=== PATIENT | female | born 1980 | race American Indian/Alaskan Native ===

== ENCOUNTER 2016-09-05 07:17 | Emergency (ER) | payer MEDICAID ==
--- NOTE | 2016-09-05 16:15 | Vascular Lab Report ---
Right Lower Extremity Venous Duplex Study: Reason for Exam: Pain of the right lower extremity. Comments on the Right: Recanalized deep venous thrombus noted in the femoral vein. Superficial thrombus noted in the greater saphenous vein.. The remaining veins visualized are freely compressible without evidence of internal echogenicity. Spontaneous and phasic flow is absent proximally. Comments on the Left: A limited duplex study was done of the proximal veins of the left lower extremity. All veins visualized are freely compressible without evidence of internal echogenicity. Flow is spontaneous and phasic throughout. No evidence of acute or chronic thrombus is seen in any of the vessels visualized. Impression: No evidence of acute deep venous thrombosis. Recanalized chronic deep venous thrombosis in the femoral vein. Superficial thrombophlebitis in the greater saphenous vein.
--- NOTE | 2016-09-05 16:56 | Emergency Department Report ---
ED Extremity Problem HPI - General Chief complaint: Extremity Injury, Lower Stated complaint: POSS DVT Time Seen by Provider: 09/05/16 15:59 Source: patient Mode of arrival: Ambulatory Limitations: No Limitations - History of Present Illness Initial comments: 36-year-old female presents to the emergency department complaining of aching pain in her right inner thigh for the past one week. Patient states that it feels like she has a blood clot in her leg. Patient reports a history of blood clots and pulmonary embolism. She was taken off of anticoagulation by her delivery engineer 3 years ago. She has not seen his delivery engineer since then. Patient denies chest pain or difficulty breathing. She also denies swelling or redness in her right leg. There are no other complaints. MD Complaint: extremity pain -: Gradual, week(s) (1) Location: right, lower extremity History of Same: Yes Radiation: none Severity scale (0 -10): 2 Quality: aching Consistency: constant Improves with: nothing Worsens with: nothing Associated Symptoms: denies other symptoms - Related Data Home Medications Medication Instructions Recorded Confirmed Last Taken Losartan [Cozaar] 100 mg PO QDAY 02/12/13 01/28/16 03/07/14 09:00 Atenolol/Chlorthalidone 1 tab PO DAILY 08/24/13 01/28/16 03/15/14 06:00 [Atenolol-Chlorthalidone 100-25 mg] Budesoni/Formotero 160-4.5(Nf) 2 puff INHALATION ONCE PRN 08/31/13 01/28/1606/30 09:00 [Symbicort 160-4.5] Ferrous Sulfate(Nf) [Slow Release 325 mg PO BID 03/12/14 01/28/16 03/13/14 09:00 Iron(Nf)] Ibuprofen [Advil] 600 mg PO Q6H PRN 03/12/14 01/28/16 03/12/14 09:00 Temazepam 30 mg PO QHS PRN 03/12/14 01/28/16 03/12/14 21:00 amLODIPine [Norvasc] 10 mg PO DAILY 03/12/14 01/28/16 03/15/14 06:00 Previous Rx's Medication Instructions Recorded Last Taken Type traMADol [Ultram 50 MG tab] 50 mg PO Q6HR PRN #15 tablet 10/14/15 Unknown Rx oxyCODONE /ACETAMINOPHEN [Percocet 1 tab PO Q6HR PRN #20 tablet 09/05/16 Unknown Rx 5/325] Allergies Allergy/AdvReac Type Severity Reaction Status Date / Time No Known Allergies Allergy Verified 09/05/16 07:27 ED Review of Systems ROS: Stated complaint: POSS DVT Other details as noted in HPI Comment: All other systems reviewed and negative Musculoskeletal: as per HPI, myalgia ED Past Medical Hx - Past Medical History Previous Medical History?: Yes Hx Hypertension: Yes (FOR 9 YRS, DR. TAYLOR- PCP) Hx Congestive Heart Failure: No Hx Deep Vein Thrombosis: Yes (MULTIPLE IN RIGHT LEG, LAST ONE 2012) Hx Pulmonary Embolism: Yes Hx Psychiatric Treatment: Yes (suicide attempt / depression) Hx Asthma: No Hx COPD: No Additional medical history: sleep apnea. anemia. morbid obesity - Surgical History Past Surgical History?: Yes Hx Breast Surgery: Yes (breast reduction) Additional Surgical History: Uterian fibroid surgery. lap band surgery. myomectomy - Family History Family history: no significant - Social History Smoking Status: Never Smoker Substance Use Type: Prescribed - Medications Home Medications: Home Medications Medication Instructions Recorded Confirmed Last Taken Type Losartan [Cozaar] 100 mg PO QDAY 02/12/13 01/28/16 03/07/14 09:00 History Atenolol/Chlorthalidone 1 tab PO DAILY 08/24/13 01/28/16 03/15/14 06:00 History [Atenolol-Chlorthalidone 100-25 mg] Budesoni/Formotero 160-4.5(Nf) 2 puff INHALATION ONCE PRN 08/31/13 01/28/1606/30 09:00 History [Symbicort 160-4.5] Ferrous Sulfate(Nf) [Slow Release 325 mg PO BID 03/12/14 01/28/16 03/13/14 09: 00 History Iron(Nf)] Ibuprofen [Advil] 600 mg PO Q6H PRN 03/12/14 01/28/16 03/12/14 09:00 History Temazepam 30 mg PO QHS PRN 03/12/14 01/28/16 03/12/14 21:00 History amLODIPine [Norvasc] 10 mg PO DAILY 03/12/14 01/28/16 03/15/14 06:00 History traMADol [Ultram 50 MG tab] 50 mg PO Q6HR PRN #15 tablet 10/14/15 01/28/16 Unknown Rx oxyCODONE /ACETAMINOPHEN [Percocet 1 tab PO Q6HR PRN #20 tablet 09/05/16 Unknown Rx 5/325] ED Physical Exam - General Limitations: No Limitations General appearance: alert, in no apparent distress, obese - Head Head exam: Present: atraumatic, normocephalic - Eye Eye exam: Present: normal appearance, PERRL, EOMI - ENT ENT exam: Present: normal exam, normal orophraynx, mucous membranes moist - Neck Neck exam: Present: normal inspection, full ROM. Absent: tenderness - Respiratory Respiratory exam: Present: normal lung sounds bilaterally. Absent: respiratory distress - Cardiovascular Cardiovascular Exam: Present: regular rate, normal rhythm, normal heart sounds - GI/Abdominal GI/Abdominal exam: Present: soft, normal bowel sounds. Absent: distended, tenderness - Extremities Exam Extremities exam: Present: normal inspection, full ROM. Absent: tenderness - Back Exam Back exam: Present: normal inspection, full ROM. Absent: tenderness - Neurological Exam Neurological exam: Present: alert, oriented X3. Absent: motor sensory deficit - Skin Skin exam: Present: warm, dry, intact ED Course Vital Signs 09/05/16 07:22 Temperature 98.5 F Pulse Rate 94 H Respiratory 19 Rate Blood Pressure 158/86 O2 Sat by Pulse 100 Oximetry ED Medical Decision Making - Radiology Data Radiology results: report reviewed Right lower extremity Doppler ultrasound reveals no evidence of acute DVT. There is an acute SVT in the proximal thigh. - Medical Decision Making Imaging results reviewed and discussed with the patient. I have spoken with Dr. Parrish. Patient will be provided with a discount card for Eliquis and discharged home to follow up in his office. This was discussed with the patient , who agrees. - Differential Diagnosis leg pain, DVT Critical care attestation.: If time is entered above; I have spent that time in minutes in the direct care of this critically ill patient, excluding procedure time. ED Disposition Clinical Impression: Acute superficial venous thrombosis of right lower extremity Disposition: DISCHARGED TO HOME OR SELFCARE Is pt being admited?: No Condition: Stable Instructions: Venous Thromboembolism (ED) Prescriptions: oxyCODONE /ACETAMINOPHEN [Percocet 5/325] 1 tab PO Q6HR PRN #20 tablet PRN Reason: Pain Referrals: KRISS PARRISH DO [Staff Physician] - 3-5 Days Time of Disposition: 17:51
[2016-09-05 18:01] VITALS: BP 139/83
== END 2016-09-05 18:02 | disposition home or self-care (01) ==
LOC: ED 07:17
DX: I82.401 Acute embolism and thrombosis of unspecified deep veins of right lower extremity (principal); I10 Essential (primary) hypertension; Z86.711 Personal history of pulmonary embolism; F32.9 Major depressive disorder, single episode, unspecified; E66.01 Morbid (severe) obesity due to excess calories; Z90.89 Acquired absence of other organs

== ENCOUNTER 2016-12-10 10:01 | Outpatient (CLI) | payer MEDICAID ==
--- NOTE | 2016-12-10 12:16 | Ultrasound Report ---
Pelvic ultrasound: Dysfunctional uterine bleeding. Endovaginal and transabdominal imaging demonstrates an enlarged uterus measuring 9.5 x 10.5 x 14.3 cm. The uterus is heterogeneous with approximately 4 masses one of which appears to be central in position. The central mass measures 4.1 cm. The others range in size from 2.3-3.9 cm. The endometrium appears to be displaced by the central mass and may BE submucous in position. There is no obvious endometrial mass although the endometrium is not well imaged. There is a complex nabothian cyst measuring 18 mm. The left ovary measures 3.3 cm containing a 1.7 cm cyst. The right ovary measures 3.6 cm and contains a 14 mm cyst. Adjacent to the uterus there is a 6 cm mass having echo density consistent with the uterus and contiguous with the right wall of the uterus. In April 2016 the right adnexal/periuterine mass is not described. Impression: 1. Multiple uterine fibroids. Questionable submucous fibroid. 2. Limited evaluation of the endometrium. No obvious endometrial mass. 3. The right adnexal mass may be an exophytic fibroid. It appears to be unrelated to the ovary. Recommendation: Consider MR scan to better evaluate the right adnexal mass as well as the endometrium. Another possibility for bleeding evaluation would be a hysterosonogram.
== END 2016-12-10 10:02 | disposition home or self-care (01) ==
LOC: US 10:01
PROVIDERS: ATTEND Obstetrics & Gynecology
DX: D25.9 Leiomyoma of uterus, unspecified (principal); N83.201 Unspecified ovarian cyst, right side; N83.202 Unspecified ovarian cyst, left side; N88.8 Other specified noninflammatory disorders of cervix uteri; I10 Essential (primary) hypertension; D64.9 Anemia, unspecified; E78.00 Pure hypercholesterolemia, unspecified
CPT/HCPCS: 76830; 76856

== ENCOUNTER 2017-03-02 12:41 | Emergency (ER) | payer SELFPAY ==
[2017-03-02 20:00] VITALS: BP 161/117
[2017-03-03 01:16] LABS: Mean Corpuscular HGB Conc 30 % (30-34); Platelet Count 409 K/mm3 (140-440); Red Blood Count 4.98 M/mm3 (3.65-5.03); White Blood Count 8.3 K/mm3 (4.5-11.0)
[2017-03-03 01:21] LABS: Anion Gap 21 mmol/L; BUN/Creatinine Ratio 13.33; Blood Urea Nitrogen 8 mg/dL (7-17); Calcium 9.5 mg/dL (8.4-10.2); Carbon Dioxide 22 mmol/L (22-30); Chloride 102.5 mmol/L (98-107); Glucose 75 mg/dL (65-100); Potassium 3.7 mmol/L (3.6-5.0); Sodium 142 mmol/L (137-145)
[2017-03-03 01:24] LABS: Hematocrit 32.6 % (30.3-42.9); Hemoglobin 9.7 gm/dl (10.1-14.3); Mean Corpuscular Hemoglobin 19 pg (28-32); Mean Corpuscular Volume 66 fl (79-97)
[2017-03-03 01:25] LABS: INR 0.91 (0.87-1.13)
--- NOTE | 2017-03-03 09:50 | XRay Report ---
ROUTINE CHEST, TWO VIEWS: HISTORY: Shortness of breath. The trachea, heart, mediastinal contour, lung sahu and bony thorax are unremarkable. IMPRESSION: Unremarkable chest x-ray.
--- NOTE | 2017-03-03 10:15 | Vascular Lab Report ---
Right Lower Extremity Venous Duplex Study: Reason for Exam: Pain of the right lower extremity. Comments on the Right: Chronic thrombosis noted in the right femoral and common femoral veins. The remaining veins visualized are freely compressible without evidence of internal echogenicity. Spontaneous and phasic flow is present proximally. Comments on the Left: A limited duplex study was done of the proximal veins of the left lower extremity. All veins visualized are freely compressible without evidence of internal echogenicity. Flow is spontaneous and phasic throughout. No evidence of acute or chronic thrombus is seen in any of the vessels visualized. Impression: Chronic deep venous thrombosis in the right lower extremity.
== END 2017-03-03 01:00 | disposition left against medical advice (07) ==
LOC: ED 12:41
DX: M79.671 Pain in right foot (principal); Z53.21 Procedure and treatment not carried out due to patient leaving prior to being seen by health care provider
CPT/HCPCS: 36415; 71020; 80048; 84702; 85027; 85610; 85730

== ENCOUNTER 2017-10-14 10:28 | Emergency (ER) | payer OTHER ==
[2017-10-14] MEDS ORDERED: NORVASC PO ONE (11:19)
--- NOTE | 2017-10-14 11:22 | Emergency Department Report ---
Chief Complaint: Extremity Injury, Lower Stated Complaint: LEFT LEG PAIN/HX BLOOD CLOTS - HPI History of Present Illness: 37-year-old female past medical history DVTs and PEs, morbid obesity, hypertension presents with complaint of approximately 3-5 days of worsening pain and swelling in lower extremities worse on left than right. Denies any current chest pain shortness of breath or palpitations. Patient states she was last treated for PE and DVT in 2014. Is not currently taking any medicines and has not seen a primary care doctor for a long time. Was previously on losartan and amlodipine for blood pressure control. Awake alert and oriented 3 not in acute distress. - ROS Review of Systems: History of PE and DVT - Exam Vital Signs: Vital Signs 10/14/17 11:08 Temperature 98.2 F Pulse Rate 89 Respiratory 18 Rate Blood Pressure 188/124 O2 Sat by Pulse 100 Oximetry Physical Exam: Bilateral lower extremities large significant amount of adipose tissue. Difficult to ascertain exactly where pain is. MSE screening note: Focused history and physical exam performed. Due to findings the following was ordered: Screening Assessment/Plan/Differential Dx: Lower extremity pain and swelling 1- This initial assessment/diagnostic orders/clinical plan/ treatment(s) is/are subject to change based on pt's health status, clinical progression and re- assessment by fellow clinical providers in the ED. Further treatment and workup at subsequent clinical provers discretion. Patient/guardians urged not to elope from ED as their condition may be serious if not clinically assessed and managed. 2-labs and lower extremity duplex 3-1 dose of amlodipine this patient's blood pressure is elevated. Patient previously on amlodipine and will start. States she has not taken it in some time ED Disposition for MSE Condition: Stable
[2017-10-14 11:34] LABS: Basophils % (Auto) 0.5 % (0.0-1.8); Eosinophils # (Auto) 0.3 K/mm3 (0.0-0.4); Eosinophils % (Auto) 4.1 % (0.0-4.3); Lymphocytes # (Auto) 2.3 K/mm3 (1.2-5.4); Lymphocytes % (Auto) 31.3 % (13.4-35.0); Mean Corpuscular HGB Conc 29 % (30-34); Monocytes # (Auto) 0.4 K/mm3 (0.0-0.8); Monocytes % (Auto) 6.1 % (0.0-7.3); Platelet Count 417 K/mm3 (140-440); Red Blood Count 4.36 M/mm3 (3.65-5.03)
[2017-10-14 11:38] LABS: Hematocrit 29.3 % (30.3-42.9); Hemoglobin 8.6 gm/dl (10.1-14.3)
[2017-10-14 11:39] LABS: Mean Corpuscular Hemoglobin 20 pg (28-32); Mean Corpuscular Volume 67 fl (79-97); Red Cell Distribution Width 20.9 % (13.2-15.2)
[2017-10-14 11:44] LABS: INR 0.87 (0.87-1.13)
[2017-10-14 11:45] LABS: Partial Thromboplastin Time 27.6 Sec. (24.2-36.6)
[2017-10-14 11:46] LABS: BUN/Creatinine Ratio 21; Blood Urea Nitrogen 15 mg/dL (7-17); Calcium 8.8 mg/dL (8.4-10.2); Hemolysis Index 0
[2017-10-14] MEDS ORDERED: LOVENOX SUB-Q ONE ×2 (13:00)
[2017-10-14] MEDS ORDERED: NACL 0.9% 500 ML 500 ML IV ONE (13:07)
[2017-10-14] MEDS ORDERED: SUBLIMAZE IV ONE (13:07)
[2017-10-14] MEDS ORDERED: LOVENOX SUB-Q STA (13:08)
--- NOTE | 2017-10-14 13:10 | Emergency Department Report ---
ED General Adult HPI - General Chief complaint: Extremity Injury, Lower Stated complaint: LEFT LEG PAIN/HX BLOOD CLOTS Time Seen by Provider: 10/14/17 12:56 Source: patient, RN notes reviewed, old records reviewed Mode of arrival: Ambulatory Limitations: No Limitations - History of Present Illness Initial comments: This is a 37-year-old female who is previously unknown to this provider. Past medical history includes DVT, pulmonary embolus, obesity, sleep apnea, lap band surgery, noncompliant with CPAP. Patient reports that she presents to the ER with a complaint of leg pain. The leg pain is in the left anterior tibial region, distal to the knee, and radiates to the dorsal aspect of left foot. It is achy. It is intermittent. It increases with palpation and range of motion. And it decreases with rest. The patient also complains of left medial thigh pain. She denies headache, chest pain, abdominal pain, hematemesis or bright red blood per rectum. She further reports that she is not . She admits to chronic shortness of breath which is slightly worsened than baseline. It's been worse over the past week or so. There are no urinary symptoms. -: Gradual Location: left, right, lower extremity Radiation: extremity Quality: aching Consistency: intermittent Improves with: rest Worsens with: movement Associated Symptoms: shortness of breath. denies: confusion, chest pain, cough , diaphoresis, fever/chills, headaches, loss of appetite, malaise, nausea/ vomiting, rash, seizure, syncope, weakness - Related Data Home Medications Medication Instructions Recorded Confirmed Last Taken Atenolol/Chlorthalidone 1 tab PO DAILY 08/24/13 01/28/16 03/15/14 06:00 [Atenolol-Chlorthalidone 100-25 mg] Ferrous Sulfate(Nf) [Slow Release 325 mg PO BID 03/12/14 01/28/16 03/13/14 09:00 Iron(Nf)] Previous Rx's Medication Instructions Recorded Last Taken Type traMADol [Ultram 50 MG tab] 50 mg PO Q6HR PRN #15 tablet 10/14/15 Unknown Rx Budesoni/Formotero 160-4.5(Nf) 2 puff INHALATION ONCE PRN #1 inha 10/14/17 Unknown Rx [Symbicort 160-4.5 (Nf)] Enoxaparin [Lovenox] 150 mg SQ QDAY #30 syringe 10/14/17 Unknown Rx Losartan [Cozaar] 100 mg PO QDAY #30 tablet 10/14/17 Unknown Rx amLODIPine [Norvasc] 10 mg PO DAILY #30 tablet 10/14/17 Unknown Rx Allergies Allergy/AdvReac Type Severity Reaction Status Date / Time No Known Allergies Allergy Verified 09/05/16 07:27 ED Review of Systems ROS: Stated complaint: LEFT LEG PAIN/HX BLOOD CLOTS Other details as noted in HPI Comment: All other systems reviewed and negative ED Past Medical Hx - Past Medical History Hx Hypertension: Yes Hx Congestive Heart Failure: No Hx Deep Vein Thrombosis: Yes (MULTIPLE IN RIGHT LEG, LAST ONE 2014) Hx Pulmonary Embolism: Yes Hx Psychiatric Treatment: Yes (suicide attempt / depression) Hx Asthma: No Hx COPD: No Additional medical history: sleep apnea,PE. anemia. morbid obesity - Surgical History Hx Breast Surgery: Yes (breast reduction) Additional Surgical History: Uterian fibroid surgery. lap band surgery. myomectomy - Social History Smoking Status: Never Smoker Substance Use Type: None, Marijuana - Medications Home Medications: Home Medications Medication Instructions Recorded Confirmed Last Taken Type Atenolol/Chlorthalidone 1 tab PO DAILY 08/24/13 01/28/16 03/15/14 06:00 History [Atenolol-Chlorthalidone 100-25 mg] Ferrous Sulfate(Nf) [Slow Release 325 mg PO BID 03/12/14 01/28/16 03/13/14 09: 00 History Iron(Nf)] traMADol [Ultram 50 MG tab] 50 mg PO Q6HR PRN #15 tablet 10/14/15 01/28/16 Unknown Rx Budesoni/Formotero 160-4.5(Nf) 2 puff INHALATION ONCE PRN #1 inha 10/14/17 Unknown Rx [Symbicort 160-4.5 (Nf)] Enoxaparin [Lovenox] 150 mg SQ QDAY #30 syringe 10/14/17 Unknown Rx Losartan [Cozaar] 100 mg PO QDAY #30 tablet 10/14/17 Unknown Rx amLODIPine [Norvasc] 10 mg PO DAILY #30 tablet 10/14/17 Unknown Rx ED Physical Exam - General Limitations: No Limitations General appearance: alert, in no apparent distress, obese - Head Head exam: Present: atraumatic, normocephalic - Eye Eye exam: Present: normal appearance, EOMI. Absent: nystagmus - ENT ENT exam: Present: normal exam, normal orophraynx, mucous membranes moist, normal external ear exam - Neck Neck exam: Present: normal inspection, full ROM - Respiratory Respiratory exam: Present: normal lung sounds bilaterally. Absent: respiratory distress - Cardiovascular Cardiovascular Exam: Present: regular rate, normal rhythm, normal heart sounds. Absent: systolic murmur, diastolic murmur, rubs, gallop - GI/Abdominal GI/Abdominal exam: Present: soft, normal bowel sounds. Absent: distended, tenderness, guarding, rebound, rigid, pulsatile mass - Extremities Exam Extremities exam: Present: normal inspection (chaperoned by nurse: Dianne Nava), full ROM, pedal edema, other (there is no palpable cord. Patient has excess adipose tissue in the bilateral medial thighs. There is no redness, pus or streaking. The compartments are soft. 2+ pulses noted in the bilateral lower and upper extremities.). Absent: tenderness, joint swelling, calf tenderness - Back Exam Back exam: Present: normal inspection. Absent: CVA tenderness (L), muscle spasm , paraspinal tenderness, vertebral tenderness - Neurological Exam Neurological exam: Present: alert, oriented X3, CN II-XII intact, normal gait, other (Extraocular movements intact. Tongue midline. No facial droop. Facial sensation intact to light touch in the V1, V2, V3 distribution bilaterally. 5 and 5 strength in 4 extremities.. Sensation is intact to light touch in 4 extremities.). Absent: motor sensory deficit - Psychiatric Psychiatric exam: Present: normal affect, normal mood - Skin Skin exam: Present: warm, dry, intact, normal color. Absent: rash, erythema, urticaria, ecchymosis ED Course Vital Signs 10/14/17 10/14/17 10/14/17 11:08 11:23 13:27 Temperature 98.2 F Pulse Rate 89 89 76 Respiratory 18 14 Rate Blood Pressure 188/124 188/124 Blood Pressure 142/78 [Right] O2 Sat by Pulse 100 100 Oximetry 10/14/17 10/14/17 13:56 14:45 Temperature Pulse Rate 75 Respiratory 18 18 Rate Blood Pressure Blood Pressure 158/89 [Right] O2 Sat by Pulse 100 Oximetry ED Medical Decision Making - Lab Data Result diagrams: 10/14/17 11:21 10/14/17 11:21 Vital Signs 10/14/17 10/14/17 11:08 11:23 Temperature 98.2 F Pulse Rate 89 89 Respiratory 18 Rate Blood Pressure 188/124 188/124 O2 Sat by Pulse 100 Oximetry Lab Results 10/14/17 10/14/17 10/14/17 Range/Units 11:21 11:21 11:21 WBC 7.3 (4.5-11.0) K/mm3 RBC 4.36 (3.65-5.03) M/mm3 Hgb 8.6 L (10.1-14.3) gm/dl Hct 29.3 L (30.3-42.9) % MCV 67 L (79-97) fl MCH 20 L (28-32) pg MCHC 29 L (30-34) % RDW 20.9 H (13.2-15.2) % Plt Count 417 (140-440) K/mm3 Lymph % (Auto) 31.3 (13.4-35.0) % [place] % (Auto) 6.1 (0.0-7.3) % Eos % (Auto) 4.1 (0.0-4.3) % Baso % (Auto) 0.5 (0.0-1.8) % Lymph # 2.3 (1.2-5.4) K/mm3 [place] # 0.4 (0.0-0.8) K/mm3 Eos # 0.3 (0.0-0.4) K/mm3 Baso # 0.0 (0.0-0.1) K/mm3 Seg Neutrophils % 58.0 (40.0-70.0) % Seg Neutrophils # 4.2 (1.8-7.7) K/mm3 PT 12.2 (12.2-14.9) Sec. INR 0.87 (0.87-1.13) APTT 27.6 (24.2-36.6) Sec. D-Dimer 1436.63 H (0-234) ng/mlDDU Sodium 140 (137-145) mmol/L Potassium 4.6 (3.6-5.0) mmol/L Chloride 102.8 (98-107) mmol/L Carbon Dioxide 27 (22-30) mmol/L Anion Gap 15 mmol/L BUN 15 (7-17) mg/dL Creatinine 0.7 (0.7-1.2) mg/dL Estimated GFR > 60 ml/min BUN/Creatinine Ratio 21 % Glucose 100 (65-100) mg/dL Calcium 8.8 (8.4-10.2) mg/dL - EKG Data -: EKG Interpreted by Me EKG shows normal: sinus rhythm, axis, QRS complexes, ST-T waves - EKG Data 10/14/17 14:53 Normal sinus, 75 bpm, prolonged FL interval, normal axis, normal ST segments, not consistent with a STEMI - Radiology Data Radiology results: report reviewed, image reviewed [facility] : 1980 [facility]# [id number] 10/14/17 12:39 - Radiology Dept. Note by GLENN JULIO [facility] Num: [id number] : 1980 Patient Age: 37 BLE VENOUS DUPLEX COMPLETED. VAS LAB PRELIMINARY REPORT; NO EVIDENCE OF ACUTE DVT/SVT NOTED IN VESSELS/SEGMENTS EXAMINED. DIFFICULT TO IMAGE DST THIGH/ PX CALF VESSELS DUE TO HABITUS/ SWELLING, BLE. PHYSICIANS REPORT TO FOLLOW...(RSK) Initialized on 10/14/17 12:39 - END OF NOTE - Medical Decision Making Differential diagnosis, including but not limited to: DVT, lymphedema, pulmonary embolus, pneumonia, noncompliance with CPAP, obesity hypoventilation syndrome Assessment and plan: 37-year-old female with a primary complaint of bilateral lower extremity pain, mostly in the left medial thigh distribution and left anterior tibial distribution. There is no acute DVT demonstrated on ultrasound. The compartments are soft, there is no clinical indication of cellulitis or compartment syndrome. The patient reported that she was not . She further complains of shortness of breath, Which has been present subacutely, and does not appear to be acutely decompensated. The patient is speaking in full sentences, and has no focal pulmonary findings. A CT scan of the chest was negative for pulmonary embolus. Patient's pain was treated, she will be discharged with Lovenox prescriptions, her elevated blood pressure is also appreciated, please reference the [employer] clinical policy on blood pressure that is elevated and is also asymptomatic. The patient is suitable to follow-up in outpatient primary care doctor for her numerous chronic medical issues. Critical care attestation.: If time is entered above; I have spent that time in minutes in the direct care of this critically ill patient, excluding procedure time. ED Disposition Clinical Impression: Leg pain, Dyspnea Disposition: DC-01 TO HOME OR SELFCARE Is pt being admited?: No Does the pt Need Aspirin: No Condition: Stable Additional Instructions: Take the medications as directed. Follow up within the next month with either her primary care doctor or metrology specialist. It is very important to follow up with either metrology specialist or primary care doctor as recommended to determine if he truly require lifelong anticoagulation or blood thinning medication. Please make certain to use his CPAP that was prescribed few by her previous physician. Noncompliance with CPAP therapy can result in pulmonary hypertension , right-sided heart failure, disability, shortness of breath. Please note that blood pressure was elevated in the ER and this should be followed up by a primary care doctor within the recommended timeframe. Long- term competitions of hypertension and elevated blood pressure includes stroke, heart attack, disability, paralysis, loss of quality of life. Please return to the ER right away with new pain, worsened pain, migration of pain, fevers, chills, lethargy, irritability, projectile vomiting, change in mental status, confusion, inability to tolerate liquid feeds. Prescriptions: amLODIPine [Norvasc] 10 mg PO DAILY #30 tablet Budesoni/Formotero 160-4.5(Nf) [Symbicort 160-4.5 (Nf)] 2 puff INHALATION ONCE PRN #1 inha PRN Reason: WHEN EXERCISING Enoxaparin [Lovenox] 150 mg SQ QDAY #30 syringe Losartan [Cozaar] 100 mg PO QDAY #30 tablet Referrals: PRIMARY CAREMD [Primary Care Provider] - 3-5 Days JOSE L PEREIRA MD [Staff Physician] - 3-5 Days [facility] [Provider Group] - 3-5 Days MEENA CARLIN MD [Staff Physician] - 3-5 Days
--- NOTE | 2017-10-14 14:32 | Cat Scan Report ---
CTA CHEST: HISTORY: Dyspnea. COMPARISON: none. TECHNIQUE: Helical CT in 1.25mm intervals following IV contrast. Pulmonary embolus protocol. Sagittal and coronal reformatted images. Rotational MIP images. FINDINGS: Contrast bolus is satisfactory. No pulmonary embolus is identified. Thyroid gland: Normal. Tracheobronchial tree: Normal. Esophagus: Normal. Heart: Normal. Pericardium: Normal. Mediastinum: Normal. Lung Jean: Normal. Pleural Spaces: Normal. Musculoskeletal: Normal. IMPRESSION: No evidence for pulmonary embolus. Unremarkable CT chest with contrast.
[2017-10-14 15:48] VITALS: BP 150/87
--- NOTE | 2017-10-16 11:28 | Vascular Lab Report ---
The LOWER EXTREMITY VENOUS DUPLEX: REASON FOR EXAM: Pain and swelling of the lower extremities. COMMENTS ON THE RIGHT: All veins visualized are freely compressible without evidence of internal echogenicity. Flow is spontaneous and phasic throughout. COMMENTS ON THE LEFT: All veins visualized are freely compressible without evidence of internal echogenicity. Flow is spontaneous and phasic throughout. IMPRESSION: No evidence of acute or chronic deep venous thrombosis in either lower extremity. Study was technically limited due to patient body habitus. Proximal calf veins are difficult to visualize.
== END 2017-10-14 15:55 | disposition home or self-care (01) ==
LOC: ED 10:28
DX: M79.605 Pain in left leg (principal); I10 Essential (primary) hypertension; F32.9 Major depressive disorder, single episode, unspecified; E66.01 Morbid (severe) obesity due to excess calories; F12.10 Cannabis abuse, uncomplicated; R06.00 Dyspnea, unspecified; Z86.718 Personal history of other venous thrombosis and embolism; Z86.711 Personal history of pulmonary embolism
CPT/HCPCS: 36415; 71275; 80048; 82550; 85025; 85379; 85610; 85730; 93005; 93010; 93970; 96372; 96374; 99284; J1650; J3010; J7040; Q9967

== ENCOUNTER 2019-03-18 07:08 | Outpatient (CLI) | payer MEDICAID ==
--- NOTE | 2019-03-20 04:45 | Pulmonary Function Test ---
SPIROMETRY: FVC 3.68 liters, which is 77% of predicted; FEV1 is 3.03 liters, which is 79% of the predicted; FEV1/FVC ratio is 84. FLOW VOLUME LOOP: FEF 25-75% is 3.24 liters per second, which is 80% of the predicted. IMPRESSION: Normal spirometry. JOB# [id number] RSM/NTS
== END 2019-03-18 07:09 | disposition home or self-care (01) ==
LOC: PF 07:08
PROVIDERS: ATTEND Surgery
DX: E66.2 Morbid (severe) obesity with alveolar hypoventilation (principal)
CPT/HCPCS: 94010

== ENCOUNTER → 2019-06-05 | Outpatient (CLI) | payer BC | END | disposition home or self-care (01) | LOC: SLR 11:00 | PROVIDERS: ATTEND Otolaryngology | DX: G47.33 Obstructive sleep apnea (adult) (pediatric) (principal); G47.419 Narcolepsy without cataplexy | CPT/HCPCS: G0399 ==

== ENCOUNTER → 2019-07-02 | Outpatient (CLI) | payer BC | END | disposition home or self-care (01) | LOC: SLR 11:00 | PROVIDERS: ATTEND Otolaryngology | DX: G47.33 Obstructive sleep apnea (adult) (pediatric) (principal) | CPT/HCPCS: 95811 ==

== ENCOUNTER 2019-10-03 08:33 | Emergency (ER) | payer BC ==
[2019-10-03 08:42] VITALS: BP 160/102
--- NOTE | 2019-10-03 09:19 | Emergency Department Report ---
ED Female HPI - General Chief complaint: Urogenital-Female Stated complaint: UTI/POSS BLADDER INFECTION Time Seen by Provider: 10/03/19 08:57 Source: patient Mode of arrival: Ambulatory Limitations: No Limitations - History of Present Illness Initial comments: This is a 39-year-old -[place] female who presents to the emergency room with urinary frequency and dysuria for 2 to 3 days. Past medical history of hypertension, marijuana use, and DVT of right lower extremity, depression, PE, anemia, sleep apnea, and morbidly obese. Patient also reports suprapubic pressure that is intermittent and usually record occurs after urination. She is drinking increased amount of water and cranberry juice with no change in symptoms. Her last menstrual period was last week. Denies risk of . Denies fever, chills, hematuria, or vaginal discharge. MD Complaint: dysuria Onset/Timin -: days(s) Location: suprapubic Radiation: non-radiating Severity: mild Severity scale (0 -10): 3 Quality: other (Pressure) Consistency: intermittent Improves with: none Worsens with: urination Are you Now?: No Last Menstrual Period: 09/21/19 EDC: 06/27/20 Associated Symptoms: abdominal pain, dysuria. denies: vaginal discharge, vaginal bleeding, nausea/vomiting, fever/chills, headaches, loss of appetite, hematuria, rash, seizure, shortness of breath, syncope, weakness - Related Data Home Medications Medication Instructions Recorded Confirmed Last Taken Atenolol/Chlorthalidone 1 tab PO DAILY 08/24/13 01/28/16 03/15/14 06:00 [Atenolol-Chlorthalidone 100-25 mg] Ferrous Sulfate(Nf) [Slow Release 325 mg PO BID 03/12/14 01/28/16 03/13/14 09:00 Iron(Nf)] Previous Rx's Medication Instructions Recorded Last Taken Type traMADoL [Ultram 50 MG tab] 50 mg PO Q6HR PRN #15 tablet 10/14/15 Unknown Rx Acetaminophen [Tylenol Arthritis] 650 mg PO Q6HR PRN #30 tablet.er 10/14/17 Unknown Rx Apixaban [Eliquis] 5 mg PO BID #49 tablet 10/14/17 Unknown Rx Budesoni/Formotero 160-4.5(Nf) 2 puff INHALATION ONCE PRN #1 inha 10/14/17 Unknown Rx [Symbicort 160-4.5 (Nf)] Losartan [Cozaar] 100 mg PO QDAY #30 tablet 10/14/17 Unknown Rx amLODIPine 10 mg PO DAILY #30 tablet 10/14/17 Unknown Rx Phenazopyridine [Pyridium] 200 mg PO TID #6 tab 10/03/19 Unknown Rx Sulfamethoxazole/Trimethoprim 1 each PO BID #6 tablet 10/03/19 Unknown Rx [Bactrim DS TAB] Allergies Allergy/AdvReac Type Severity Reaction Status Date / Time No Known Allergies Allergy Verified 09/05/16 07:27 ED Review of Systems ROS: Stated complaint: UTI/POSS BLADDER INFECTION Other details as noted in HPI Constitutional: denies: chills, fever Respiratory: denies: cough, shortness of breath, wheezing Cardiovascular: denies: chest pain, palpitations Gastrointestinal: abdominal pain. denies: nausea, diarrhea Genitourinary: dysuria, frequency. denies: urgency, discharge Musculoskeletal: denies: back pain, joint swelling, arthralgia Skin: denies: rash, lesions Neurological: denies: headache, weakness, paresthesias Psychiatric: denies: anxiety, depression ED Past Medical Hx - Past Medical History Previous Medical History?: Yes Hx Hypertension: Yes Hx Congestive Heart Failure: No Hx Deep Vein Thrombosis: Yes (MULTIPLE IN RIGHT LEG, LAST ONE 2014) Hx Pulmonary Embolism: Yes Hx Psychiatric Treatment: Yes (suicide attempt / depression) Hx Asthma: No Hx COPD: No Additional medical history: sleep apnea,PE. anemia. morbid obesity - Surgical History Past Surgical History?: Yes Hx Breast Surgery: Yes (breast reduction) Additional Surgical History: Uterian fibroid surgery. lap band surgery. myomectomy - Social History Smoking Status: Never Smoker Substance Use Type: Marijuana - Medications Home Medications: Home Medications Medication Instructions Recorded Confirmed Last Taken Type Atenolol/Chlorthalidone 1 tab PO DAILY 08/24/13 01/28/16 03/15/14 06:00 History [Atenolol-Chlorthalidone 100-25 mg] Ferrous Sulfate(Nf) [Slow Release 325 mg PO BID 03/12/14 01/28/16 03/13/14 09:00 History Iron(Nf)] traMADoL [Ultram 50 MG tab] 50 mg PO Q6HR PRN #15 tablet 10/14/15 01/28/16 Unknown Rx Acetaminophen [Tylenol Arthritis] 650 mg PO Q6HR PRN #30 tablet.er 10/14/17 Unknown Rx Apixaban [Eliquis] 5 mg PO BID #49 tablet 10/14/17 Unknown Rx Budesoni/Formotero 160-4.5(Nf) 2 puff INHALATION ONCE PRN #1 inha 10/14/17 Unknown Rx [Symbicort 160-4.5 (Nf)] Losartan [Cozaar] 100 mg PO QDAY #30 tablet 10/14/17 Unknown Rx amLODIPine 10 mg PO DAILY #30 tablet 10/14/17 Unknown Rx Phenazopyridine [Pyridium] 200 mg PO TID #6 tab 10/03/19 Unknown Rx Sulfamethoxazole/Trimethoprim 1 each PO BID #6 tablet 10/03/19 Unknown Rx [Bactrim DS TAB] ED Physical Exam - General Limitations: No Limitations General appearance: alert, in no apparent distress, obese (Morbidly) - Respiratory Respiratory exam: Present: normal lung sounds bilaterally. Absent: respiratory distress - Cardiovascular Cardiovascular Exam: Present: regular rate, normal rhythm. Absent: systolic murmur, diastolic murmur, rubs, gallop - GI/Abdominal GI/Abdominal exam: Present: soft, tenderness (Suprapubic), normal bowel sounds, other (Obese abdomen). Absent: distended, guarding, rebound, rigid - Extremities Exam Extremities exam: Present: normal inspection - Back Exam Back exam: Absent: CVA tenderness (R), CVA tenderness (L) - Neurological Exam Neurological exam: Present: alert, oriented X3, normal gait - Psychiatric Psychiatric exam: Present: normal affect, normal mood - Skin Skin exam: Present: warm, dry, intact, normal color. Absent: rash ED Course Vital Signs 10/03/19 08:41 Temperature 98.4 F Pulse Rate 105 H Respiratory 16 Rate Blood Pressure 160/102 [Right] O2 Sat by Pulse 99 Oximetry ED Medical Decision Making - Lab Data Lab Results 10/03/19 Range/Units Unknown Urine Color Yellow (Yellow) Urine Turbidity Cloudy (Clear) Urine pH 6.0 (5.0-7.0) Ur Specific [place] 1.017 (1.003-1.030) Urine Protein 100 mg/dl (Negative) mg/dL Urine Glucose (UA) Neg (Negative) mg/dL Urine Ketones Neg (Negative) mg/dL Urine Blood Mod (Negative) Urine Nitrite Neg (Negative) Ur Reducing Substances Not Reportable Urine Bilirubin Neg (Negative) Urine Ictotest Not Reportable Urine Urobilinogen < 2.0 (<2.0) mg/dL Ur Leukocyte Esterase Mod (Negative) Urine WBC (Auto) > 182.0 H (0.0-6.0) /HPF Urine RBC (Auto) 93.0 (0.0-6.0) /HPF U Epithel Cells (Auto) 7.0 (0-13.0) /HPF Urine Mucus Few /HPF Urine HCG, Qual Negative (Negative) - Medical Decision Making 39-year-old female who presents to the emergency room with dysuria and urinary frequency for 3 days. Past medical history of hypertension, marijuana use, depression, sleep apnea, and PE. Vitals are stable and in no acute distress. Mild suprapubic tenderness on exam. Negative CVA tenderness. Vaginal exam deferred at this time, denies vaginal discharge. Urinalysis positive for leukocyte esterase, moderate blood, and elevated WBCs. Negative urine hCG. This is acute cystitis. Start antibiotics. Patient discharged home stable with strict return instructions. Follow-up with PCP. Critical care attestation.: If time is entered above; I have spent that time in minutes in the direct care of this critically ill patient, excluding procedure time. ED Disposition Clinical Impression: Dysuria, Urinary frequency Acute cystitis Qualifiers: Hematuria presence: with hematuria Qualified Code(s): N30.01 - Acute cystitis with hematuria Disposition: TO HOME OR SELFCARE Is pt being admited?: No Condition: Stable Instructions: Urinary Tract Infection in Women (ED) Additional Instructions: Increase fluid intake. Complete antibiotics as prescribed. Follow-up with the primary care doctor if symptoms are worsening. Prescriptions: Sulfamethoxazole/Trimethoprim [Bactrim DS TAB] 1 each PO BID #6 tablet Phenazopyridine [Pyridium] 200 mg PO TID #6 tab Referrals: ZOE TAYLOR MD [Primary Care Provider] - 3-5 Days DG JAY MD [Staff Physician] - 3-5 Days Time of Disposition: 10:22
[2019-10-03 09:44] LABS: HCG Qualitative,Urine Negative (Negative)
[2019-10-03 09:50] LABS: Bilirubin,Urine NEG (Negative); Blood,Urine MOD (Negative); Color,Urine Yellow (Yellow); Mucus,Urine FEW /HPF; Urobilinogen,Urine < 2.0 mg/dL (<2.0)
[2019-10-03 09:54] LABS: WBC,Urine > 182.0 /HPF (0.0-6.0)
== END 2019-10-03 10:30 | disposition home or self-care (01) ==
LOC: ED 08:33
DX: N30.00 Acute cystitis without hematuria (principal); I10 Essential (primary) hypertension; I82.409 Acute embolism and thrombosis of unspecified deep veins of unspecified lower extremity; F32.9 Major depressive disorder, single episode, unspecified; Z98.890 Other specified postprocedural states; Z79.899 Other long term (current) drug therapy
CPT/HCPCS: 81001; 81025; 99283

== ENCOUNTER 2020-02-25 11:44 | Observation (INO) | payer BC ==
[2020-02-25 13:47] LABS: Blood Urea Nitrogen 12 mg/dL (7-17); Calcium 8.8 mg/dL (8.4-10.2); Hemolysis Index 0
[2020-02-25 13:49] LABS: Basophils % (Auto) 0.4 % (0.0-1.8); Eosinophils # (Auto) 0.2 K/mm3 (0.0-0.4); Eosinophils % (Auto) 2.4 % (0.0-4.3); Hematocrit 25.2 % (30.3-42.9); Hemoglobin 7.6 gm/dl (10.1-14.3); Lymphocytes # (Auto) 1.9 K/mm3 (1.2-5.4); Lymphocytes % (Auto) 27.8 % (13.4-35.0); Mean Corpuscular HGB Conc 30 % (30-34); Monocytes # (Auto) 0.6 K/mm3 (0.0-0.8); Monocytes % (Auto) 8.5 % (0.0-7.3); Platelet Count 286 K/mm3 (140-440)
[2020-02-25 13:52] LABS: Mean Corpuscular Volume 65 fl (79-97); Red Cell Distribution Width 20.1 % (13.2-15.2)
[2020-02-25 13:56] LABS: BUN/Creatinine Ratio 17
[2020-02-25 14:05] LABS: INR 1.12 (0.87-1.13)
[2020-02-25] MEDS ORDERED: SODIUM CHLORIDE 0.9% 500 ML 500 ML IV ONE (14:05)
[2020-02-25] MEDS ORDERED: ACETAMINOPHEN 500 MG TAB PO ONE (14:05)
--- NOTE | 2020-02-25 14:06 | Emergency Department Report ---
ED General Adult HPI - General Chief complaint: Extremity Injury, Lower Stated complaint: BLOOD CLOTS/JONATHAN PUI?: No Time Seen by Provider: 02/25/20 13:34 Source: patient, RN notes reviewed, old records reviewed Mode of arrival: Ambulatory Limitations: No Limitations - History of Present Illness Initial comments: The patient was evaluated in the emergency department for symptoms described in the history of present illness. He/she was evaluated in the context of the global COVID-19 pandemic, which necessitated consideration that the patient might be at risk for infection with the virus that causes COVID-19. Institutional protocols and algorithms that pertain to the evaluation of patients at risk for COVID-19 are in a state of rapid change based on information released by regulatory bodies including the CDC and federal and state organizations. These policies and algorithms were followed during the patient's care in the emergency department. Please note that these policies, procedures and recommendations changed on a rapid basis. During the history and physical examination, I am medical staff manager and escorted by nurse: MARY RUBIN The patient is a 39-year-old female. I have evaluated her in the past. Her primary care doctor is Dr. Branham Past medical history includes morbid obesity, history of DVT, pulmonary embolism, obesity, sleep apnea, currently not on CPAP, supposed to be on li felong Eliquis therapy, for which she is intermittently compliant. She reports having had multiple DVTs, one in 2013, then in 1999 and (she is not quite sure which year), and then in 2018, and reports having had a pulmonary embolism in 2018. She does not need a refill on her Eliquis, but has not been taking it with absolute compliance secondary to indiscretions. She presents to the ER today with a complaint of nontraumatic right medial thigh and leg pain, swelling, "it feels like a DVT." This discomfort has been present for the past 2 days. She also endorses painless shortness of breath for the past 2 to 3 days. It worsens with exertion. She states that she is not . She states that she has not delivered or given within the past 6 weeks. She also reports a history of fibroids, and heavy menstruation, no hematemesis or bright red blood per rectum, and is intermittently compliant with her ferrous sulfate. -: Gradual, days(s) Location: right, lower extremity Quality: aching Consistency: constant Improves with: movement, rest - Related Data Home Medications Medication Instructions Recorded Confirmed Last Taken Ferrous Sulfate(Nf) [Slow Release 325 mg PO BID 03/12/14 02/25/20 03/13/14 09:00 Iron(Nf)] Metronidazole 500 mg PO DAILY 02/25/20 02/25/20 Unknown NIFEdipine [Nifedipine ER] 30 mg PO DAILY 02/25/20 02/25/20 Unknown NIFEdipine [Nifedipine ER] 30 mg PO DAILY 02/25/20 02/25/20 Unknown Previous Rx's Medication Instructions Recorded Last Taken Type Apixaban [Eliquis] 5 mg PO BID #49 tablet 10/14/17 Unknown Rx Budesoni/Formotero 160-4.5(Nf) 2 puff INHALATION ONCE PRN #1 inha 10/14/17 Unknown Rx [Symbicort 160-4.5 (Nf)] amLODIPine 10 mg PO DAILY #30 tablet 10/14/17 Unknown Rx Allergies Allergy/AdvReac Type Severity Reaction Status Date / Time No Known Allergies Allergy Verified 09/05/16 07:27 ED Review of Systems ROS: Stated complaint: BLOOD CLOTS/JONATAHN Other details as noted in HPI Constitutional: denies: fever Eyes: denies: eye discharge ENT: denies: congestion Respiratory: shortness of breath. denies: cough Cardiovascular: denies: chest pain Gastrointestinal: denies: abdominal pain, nausea, vomiting, hematemesis, melena, hematochezia Genitourinary: denies: dysuria Musculoskeletal: myalgia Neurological: denies: weakness Hematological/Lymphatic: denies: easy bleeding ED Past Medical Hx - Past Medical History Hx Hypertension: Yes Hx Congestive Heart Failure: No Hx Deep Vein Thrombosis: Yes (MULTIPLE IN RIGHT LEG, LAST ONE 2014) Hx Pulmonary Embolism: Yes Hx Psychiatric Treatment: Yes (suicide attempt / depression) Hx Asthma: No Hx COPD: No Additional medical history: sleep apnea,PE. anemia. morbid obesity - Surgical History Hx Breast Surgery: Yes (breast reduction) Additional Surgical History: Uterian fibroid surgery. lap band surgery. myomectomy - Social History Smoking Status: Never Smoker - Medications Home Medications: Home Medications Medication Instructions Recorded Confirmed Last Taken Type Ferrous Sulfate(Nf) [Slow Release 325 mg PO BID 03/12/14 02/25/20 03/13/14 09:00 History Iron(Nf)] Apixaban [Eliquis] 5 mg PO BID #49 tablet 10/14/17 02/25/20 Unknown Rx Budesoni/Formotero 160-4.5(Nf) 2 puff INHALATION ONCE PRN #1 inha 10/14/17 02/25/20 Unknown Rx [Symbicort 160-4.5 (Nf)] amLODIPine 10 mg PO DAILY #30 tablet 10/14/17 Unknown Rx Metronidazole 500 mg PO DAILY 02/25/20 02/25/20 Unknown History NIFEdipine [Nifedipine ER] 30 mg PO DAILY 02/25/20 02/25/20 Unknown History NIFEdipine [Nifedipine ER] 30 mg PO DAILY 02/25/20 02/25/20 Unknown History ED Physical Exam - General Limitations: No Limitations General appearance: alert, in no apparent distress, obese - Head Head exam: Present: atraumatic, normocephalic - Eye Eye exam: Present: normal appearance, EOMI. Absent: nystagmus - ENT ENT exam: Present: normal exam, normal orophraynx, mucous membranes moist, normal external ear exam - Neck Neck exam: Present: normal inspection, full ROM. Absent: tenderness, meningismus - Respiratory Respiratory exam: Present: normal lung sounds bilaterally. Absent: respiratory distress, wheezes, rales, rhonchi, stridor, decreased breath sounds - Cardiovascular Cardiovascular Exam: Present: normal rhythm, tachycardia, normal heart sounds. Absent: systolic murmur, diastolic murmur, rubs, gallop - GI/Abdominal GI/Abdominal exam: Present: soft. Absent: distended, tenderness, guarding, rebound, rigid, pulsatile mass - Extremities Exam Extremities exam: Present: full ROM, tenderness (There is right medial thigh tenderness. Superficial phlebitis is appreciated in the right medial thigh.), other (2+ pulses noted in the bilateral upper and lower extremities. There is no long bony tenderness. The muscular compartments are soft. The pelvis is stable.). Absent: normal inspection, calf tenderness - Back Exam Back exam: Present: normal inspection, full ROM. Absent: tenderness, CVA tende rness (R), CVA tenderness (L), paraspinal tenderness, vertebral tenderness - Neurological Exam Neurological exam: Present: alert, normal gait, other (No facial droop. Tongue midline. Extraocular movements intact bilaterally. Facial sensation intact to light touch in V1, V2, V3 distribution bilaterally. 5 and a 5 strength in 4 extremities. Sensation intact to light touch in 4 extremities.). Absent: motor sensory deficit - Psychiatric Psychiatric exam: Present: anxious - Skin Skin exam: Present: warm, dry, intact, normal color. Absent: rash ED Course Vital Signs 02/25/20 02/25/20 02/25/20 12:24 13:46 13:50 Temperature 98.4 F Pulse Rate 106 H 91 H Respiratory 20 14 18 Rate Blood Pressure 158/86 Blood Pressure [Left] O2 Sat by Pulse 100 100 99 Oximetry 02/25/20 02/25/20 02/25/20 14:00 14:16 14:30 Temperature Pulse Rate 95 H 85 82 Respiratory 13 21 18 Rate Blood Pressure 131/64 133/65 131/72 Blood Pressure 131/64 [Left] O2 Sat by Pulse 100 100 100 Oximetry 02/25/20 02/25/20 02/25/20 14:46 15:00 15:16 Temperature Pulse Rate 90 Respiratory 18 Rate Blood Pressure 133/65 133/65 133/65 Blood Pressure [Left] O2 Sat by Pulse 100 100 100 Oximetry 02/25/20 02/25/20 02/25/20 15:30 15:46 16:00 Temperature Pulse Rate 88 82 Respiratory 22 20 Rate Blood Pressure 133/65 145/73 145/73 Blood Pressure [Left] O2 Sat by Pulse 100 100 100 Oximetry 02/25/20 02/25/20 02/25/20 16:16 16:30 16:46 Temperature Pulse Rate 88 91 H 89 Respiratory 23 16 15 Rate Blood Pressure 145/73 145/73 145/73 Blood Pressure [Left] O2 Sat by Pulse 100 100 100 Oximetry 02/25/20 02/25/20 02/25/20 17:00 17:07 17:26 Temperature Pulse Rate 86 86 Respiratory 19 20 Rate Blood Pressure 143/73 143/73 Blood Pressure 146/73 [Left] O2 Sat by Pulse 100 99 100 Oximetry 02/25/20 02/25/20 02/25/20 17:30 17:38 17:46 Temperature Pulse Rate 86 Respiratory 18 Rate Blood Pressure 143/73 143/73 Blood Pressure 143/73 [Left] O2 Sat by Pulse 100 100 99 Oximetry - Reevaluation(s) Reevaluation #1: 02/25/20 15:22 Differential diagnosis, including but not limited to: DVT, pulmonary embolism, superficial thrombophlebitis, Alvarez's cyst, 02/25/20 15:23 Assessment and plan: 39-year-old female morbidly obese, presenting with right lower extremity thigh pain, what appears to be a palpable cord, and shortness of breath. We will obtain lower extremity DVT studies. We will obtain CT scan of the chest. She denies chest pain to myself. She is not hypoxic on room air. EKG unchanged from prior. Reassess after initial data points. 02/25/20 15:24 \\Patient has a chronic microcytic anemia, likely secondary to heavy menstruation and fibroids. She denies vaginal bleeding, hematemesis and bright red blood per rectum. She is not acutely decompensated from this perspective. Reevaluation #2: 02/25/20 18:10 CT scan of the chest shows a right lower lobe pulmonary embolism. Lower extremity DVT study demonstrates superficial venous thrombosis. Not clinically suspect pneumonia at this time. Patient is loaded with Lovenox. Dr Bey to admit Reevaluation #3: 02/25/20 18:19 Patient updated on plan of care and findings. She is amenable to hospitalization. She is asking to eat at this time. Resting comfortably, and she is in no acute distress. ED Medical Decision Making - Lab Data Result diagrams: 02/25/20 13:05 02/25/20 13:05 Vital Signs - 24 hr 02/25/20 02/25/20 02/25/20 12:24 13:46 13:50 Temperature 98.4 F Pulse Rate 106 H 91 H Respiratory 20 14 18 Rate Blood Pressure 158/86 Blood Pressure [Left] O2 Sat by Pulse 100 100 99 Oximetry 02/25/20 02/25/20 14:00 14:16 Temperature Pulse Rate 95 H 95 H Respiratory 13 20 Rate Blood Pressure 131/64 Blood Pressure 131/64 [Left] O2 Sat by Pulse 100 100 Oximetry Lab Results 02/25/20 02/25/20 02/25/20 Range/Units 13:05 13:05 13:05 WBC 6.8 (4.5-11.0) K/mm3 RBC 3.90 (3.65-5.03) M/mm3 Hgb 7.6 L (10.1-14.3) gm/dl Hct 25.2 L (30.3-42.9) % MCV 65 L (79-97) fl MCH 20 L (28-32) pg MCHC 30 (30-34) % RDW 20.1 H (13.2-15.2) % Plt Count 286 (140-440) K/mm3 Lymph % (Auto) 27.8 (13.4-35.0) % [place] % (Auto) 8.5 H (0.0-7.3) % Eos % (Auto) 2.4 (0.0-4.3) % Baso % (Auto) 0.4 (0.0-1.8) % Lymph # 1.9 (1.2-5.4) K/mm3 [place] # 0.6 (0.0-0.8) K/mm3 Eos # 0.2 (0.0-0.4) K/mm3 Baso # 0.0 (0.0-0.1) K/mm3 Seg Neutrophils % 60.9 (40.0-70.0) % Seg Neutrophils # 4.1 (1.8-7.7) K/mm3 PT 14.5 (12.2-14.9) Sec. INR 1.12 (0.87-1.13) APTT 28.0 (24.2-36.6) Sec. D-Dimer 1075.80 H (0-234) ng/mlDDU Sodium 141 (137-145) mmol/L Potassium 4.4 (3.6-5.0) mmol/L Chloride 105.5 (98-107) mmol/L Carbon Dioxide 23 (22-30) mmol/L Anion Gap 17 mmol/L BUN 12 (7-17) mg/dL Creatinine 0.7 (0.6-1.2) mg/dL Estimated GFR > 60 ml/min BUN/Creatinine Ratio 17 % Glucose 92 (65-100) mg/dL Calcium 8.8 (8.4-10.2) mg/dL - EKG Data -: EKG Interpreted by Me EKG shows normal: sinus rhythm Rate: normal - EKG Data 02/25/20 15:22 EKG #1 shows a sinus rhythm, 99 bpm, normal axis, QTC 483 ms, there is borderline high left ventricular voltage, the EKG is not a STEMI, the EKG appears to be unchanged from prior EKG from September 2017 - Radiology Data Radiology results: pending, report reviewed, image reviewed CTA CHEST WITH IV CONTRAST INDICATION: acute on chronic dyspnea, suspect lle dvt. TECHNIQUE: Axial CT images were obtained through the chest after injection of 100 mL IV contrast. 3 plane MIP reconstructions were produced. All CT scans at this location are performed using CT dose reduction for ALARA by means of automated exposure control. COMPARISON: None available. FINDINGS: PULMONARY ARTERIES: Technique for detection of pulmonary thromboembolus is suboptimal. No definite embolus is identified within the more central portion of the pulmonary arteries but there appears to be a tiny filling defect within a small segmental branch of the right lower lobe. AORTA AND ARTERIES: No acute abnormality. MEDIASTINUM: No mass, lymphadenopathy or other significant abnormality. The heart is normal in size without a pericardial effusion. The trachea and main bronchi are patent and normal in caliber. LUNGS: Faint peripheral groundglass density identified within the peripheral aspect of the right lower lung. ADDITIONAL FINDINGS: None. UPPER ABDOMEN: No acute findings. BONES: No significant osseous abnormality. IMPRESSION: 1. Suspect small nonocclusive pulmonary thrombus identified within the right lower lobe, as above 2. Nonspecific airspace density within the peripheral aspect of the right lower lobe may represent pneumonitis. CRITICAL RESULT communication: Pulmonary embolus Time of Discovery: 4:36 PM central time on the day of the exam Time of Communication: 4:40 PM central time on the day of the exam Licensed Practitioner Receiving Report: Savana ANDERSEN Read Back Performed: Yes. Signer Name: Rik Lake MD Signed: 02/25/2020 4:39 PM DUPLEX DOPPLER LOWER EXTREMITY VEINS, BILATERAL INDICATION / CLINICAL INFORMATION: leg pain swelling, hx of dvt. TECHNIQUE: Duplex doppler imaging was performed through the veins of both lower extremities using venous compre ssion and other maneuvers. COMPARISON: Bilateral lower extremity venous Doppler dated 10/14/2017. FINDINGS: RIGHT COMMON FEMORAL VEIN: Negative. RIGHT FEMORAL VEIN: Negative. RIGHT POPLITEAL VEIN: Negative. RIGHT CALF VEINS: Filling defect is seen within a superficial vein in the medial knee/calf. LEFT COMMON FEMORAL VEIN: Negative. LEFT FEMORAL VEIN: Negative. LEFT POPLITEAL VEIN: Negative. LEF T CALF VEINS: Negative. ADDITIONAL FINDINGS: None. IMPRESSION: 1. No sonographic evidence for DVT in either lower extremity. 2. Thrombus is seen within a superficial right calf vein. Signer Name: Eusebio Miller MD Critical care attestation.: If time is entered above; I have spent that time in minutes in the direct care of this critically ill patient, excluding procedure time. ED Disposition Clinical Impression: Microcytic anemia, Superficial vein thrombosis, Acute pulmonary embolism, Obesity, Noncompliance Disposition: OP ADMIT IP TO THIS HOSP Is pt being admited?: Yes Does the pt Need Aspirin: No Condition: Good Referrals: PRIMARY CARE, [Primary Care Provider] - 3-5 Days
[2020-02-25] MEDS ORDERED: ENOXAPARIN 100 MG/1 ML INJ SUB-Q ONE (15:23)
--- NOTE | 2020-02-25 17:43 | Cat Scan Report ---
CTA CHEST WITH IV CONTRAST INDICATION: acute on chronic dyspnea, suspect lle dvt. TECHNIQUE: Axial CT images were obtained through the chest after injection of 100 mL IV contrast. 3 plane MIP re constructions were produced. All CT scans at this location are performed using CT dose reduction for ALARA by means of automated exposure control. COMPARISON: None available. FINDINGS: PULMONARY ARTERIES: Technique for detection of pulmonary thromboembolus is suboptimal. No definite em bolus is identified within the more central portion of the pulmonary arteries but there appears to b e a tiny filling defect within a small segmental branch of the right lower lobe. AORTA AND ARTERIES: No acute abnormality. MEDIASTINUM: No mass, lymphadenopathy or other significant abnormality. The heart is normal in size w ithout a pericardial effusion. The trachea and main bronchi are patent and normal in caliber. LUNGS: Faint peripheral groundglass density identified within the peripheral aspect of the right lowe r lung. ADDITIONAL FINDINGS: None. UPPER ABDOMEN: No acute findings. BONES: No significant osseous abnormality. IMPRESSION: 1. Suspect small nonocclusive pulmonary thrombus identified within the right lower lobe, as above 2. Nonspecific airspace density within the peripheral aspect of the right lower lobe may represent pn eumonitis. CRITICAL RESULT communication: Pulmonary embolus Time of Discovery: 4:36 PM central time on the day of the exam Time of Communication: 4:40 PM central time on the day of the exam Licensed Practitioner Receiving Report: Savana ANDERSEN Read Back Performed: Yes. Signer Name: Rik Lake MD Signed: 02/25/2020 5:39 PM Workstation Name: [id number]
--- NOTE | 2020-02-25 17:52 | Vascular Lab Report ---
DUPLEX DOPPLER LOWER EXTREMITY VEINS, BILATERAL INDICATION / CLINICAL INFORMATION: leg pain swelling, hx of dvt. TECHNIQUE: Duplex doppler imaging was performed through the veins of both lower extremities using venous santi mikhail and other maneuvers. COMPARISON: Bilateral lower extremity venous Doppler dated 10/14/2017. FINDINGS: RIGHT COMMON FEMORAL VEIN: Negative. RIGHT FEMORAL VEIN: Negative. RIGHT POPLITEAL VEIN: Negative. RIGHT CALF VEINS: Filling defect is seen within a superficial vein in the medial knee/calf. LEFT COMMON FEMORAL VEIN: Negative. LEFT FEMORAL VEIN: Negative. LEFT POPLITEAL VEIN: Negative. LEFT CALF VEINS: Negative. ADDITIONAL FINDINGS: None. IMPRESSION: 1. No sonographic evidence for DVT in either lower extremity. 2. Thrombus is seen within a superficial right calf vein. Signer Name: Eusebio Miller MD Signed: 02/25/2020 5:47 PM Workstation Name: [id number]
[2020-02-25] MEDS ORDERED: NON-FORMULARY EACH (Budesoni/Formotero 160-4.5(Nf) 2 PUFF) INHALATION PRN (21:57)
--- NOTE | 2020-02-25 21:57 | History and Physical Report ---
History of Present Illness Date of examination: 02/25/20 Date of admission: 02/25/20 18:12 Chief complaint: Right lower extremity swelling and shortness of breath for 2 to 3 days History of present illness: - History of Present Illness Initial comments: 39-year-old female with morbid obesity and history of recurrent DVTs pulmonary embolism obesity sleep apnea currently not on CPAP and lifelong Eliquis therapy comes in for right lower extremity swelling. Patient says that it feels like it deep venous thrombosis. Right lower extremity discomfort present for the last 2 days. Patient also has shortness of breath for past 2 to 3 days. Worsens with minimal exertion. Patient is not . Patient has a history of fibroids and heavy menstruation consistent with menorrhagia. No chest pain. - Past Medical History Hypertension: Yes Congestive Heart Failure: No Deep Vein Thrombosis: Yes (MULTIPLE IN RIGHT LEG, LAST ONE 2014) Pulmonary Embolism: Yes Psychiatric Treatment: Yes (suicide attempt / depression) Additional medical history: sleep apnea,PE. anemia. morbid obesity - Surgical History Hx Breast Surgery: Yes (breast reduction) Additional Surgical History: Uterian fibroid surgery. lap band surgery. myomectomy - Social History Smoking Status: Never Smoker Family history Htn - Medications Home Medications: Home Medications Medication Instructions Recorded Confirmed Last Taken Type Ferrous Sulfate(Nf) [Slow Release 325 mg PO BID 03/12/14 02/25/20 03/13/14 09:00 History Iron(Nf)] Apixaban [Eliquis] 5 mg PO BID #49 tablet 10/14/17 02/25/20 Unknown Rx Budesoni/Formotero 160-4.5(Nf) 2 puff INHALATION ONCE PRN #1 inha 10/14/17 02/25/20 Unknown Rx [Symbicort 160-4.5 (Nf)] amLODIPine 10 mg PO DAILY #30 tablet 10/14/17 Unknown Rx Metronidazole 500 mg PO DAILY 02/25/20 02/25/20 Unknown History NIFEdipine [Nifedipine ER] 30 mg PO DAILY 02/25/20 02/25/20 Unknown History NIFEdipine [Nifedipine ER] 30 mg PO DAILY 02/25/20 02/25/20 Unknown History Review of Systems ROS: Stated complaint: BLOOD CLOTS/JONATHAN Other details as noted in HPI Constitutional: denies: fever Eyes: denies: eye discharge ENT: denies: congestion Respiratory: shortness of breath. denies: cough Cardiovascular: denies: chest pain Gastrointestinal: denies: abdominal pain, nausea, vomiting, hematemesis, melena, hematochezia Genitourinary: denies: dysuria Musculoskeletal: myalgia Neurological: denies: weakness Hematological/Lymphatic: denies: easy bleeding Medications and Allergies Allergies Allergy/AdvReac Type Severity Reaction Status Date / Time No Known Allergies Allergy Verified 09/05/16 07:27 Home Medications Medication Instructions Recorded Confirmed Last Taken Type Ferrous Sulfate(Nf) [Slow Release 325 mg PO BID 03/12/14 02/26/20 03/13/14 09:00 History Iron(Nf)] Apixaban [Eliquis] 5 mg PO BID #49 tablet 10/14/17 02/26/20 Unknown Rx Budesoni/Formotero 160-4.5(Nf) 2 puff INHALATION ONCE PRN #1 inha 10/14/17 02/26/20 Unknown Rx [Symbicort 160-4.5 (Nf)] amLODIPine 10 mg PO DAILY #30 tablet 10/14/17 02/26/20 Unknown Rx Metronidazole 500 mg PO DAILY 02/25/20 02/26/20 Unknown History NIFEdipine [Nifedipine ER] 30 mg PO DAILY 02/25/20 02/26/20 Unknown History NIFEdipine [Nifedipine ER] 30 mg PO DAILY 02/25/20 02/26/20 Unknown History Exam - Constitutional Vitals: Temp Pulse Resp BP Pulse Ox 98.4 F 86 18 143/73 99 02/25/20 20:20 02/25/20 20:20 02/25/20 20:20 02/25/20 20:20 02/25/20 20:20 General appearance: Present: mild distress, well-nourished - EENT Eyes: Present: PERRL ENT: hearing intact, clear oral mucosa - Neck Neck: Present: supple, normal ROM - Respiratory Respiratory effort: normal Respiratory: bilateral: CTA - Cardiovascular Heart rate: 88 Rhythm: regular Heart Sounds: Present: S1 & S2. Absent: rub, click - Extremities Extremities: pulses symmetrical, No edema, abnormal (Right lower extremity swelling from the upper thigh to the mid calf region. Tenderness present.) Peripheral Pulses: within normal limits - Abdominal General gastrointestinal: Present: soft, non-tender, non-distended, normal bowel sounds Female genitourinary: Present: normal - Integumentary Integumentary: Present: clear, warm, dry - Musculoskeletal Musculoskeletal: gait normal, strength equal bilaterally - Psychiatric Psychiatric: appropriate mood/affect, intact judgment & insight - Neurologic Neurologic: CNII-XII intact, moves all extremities HEART Score - HEART Score History: Slightly suspicious Age: < 45 Risk factors: 1-2 risk factors Troponin: < normal limit - Critical Actions Critical Actions: 0-3 pts:0.9-1.7%risk of adverse cardiac event.Candidate for di osbaldo Results - Labs CBC & Chem 7: 02/25/20 13:05 02/25/20 13:05 Labs: Laboratory Last Values WBC 6.8 K/mm3 (4.5-11.0) 02/25/20 13:05 RBC 3.90 M/mm3 (3.65-5.03) 02/25/20 13:05 Hgb 7.6 gm/dl (10.1-14.3) L 02/25/20 13:05 Hct 25.2 % (30.3-42.9) L 02/25/20 13:05 MCV 65 fl (79-97) L 02/25/20 13:05 MCH 20 pg (28-32) L 02/25/20 13:05 MCHC 30 % (30-34) 02/25/20 13:05 RDW 20.1 % (13.2-15.2) H 02/25/20 13:05 Plt Count 286 K/mm3 (140-440) 02/25/20 13:05 Lymph % (Auto) 27.8 % (13.4-35.0) 02/25/20 13:05 [place] % (Auto) 8.5 % (0.0-7.3) H 02/25/20 13:05 Eos % (Auto) 2.4 % (0.0-4.3) 02/25/20 13:05 Baso % (Auto) 0.4 % (0.0-1.8) 02/25/20 13:05 Lymph # 1.9 K/mm3 (1.2-5.4) 02/25/20 13:05 [place] # 0.6 K/mm3 (0.0-0.8) 02/25/20 13:05 Eos # 0.2 K/mm3 (0.0-0.4) 02/25/20 13:05 Baso # 0.0 K/mm3 (0.0-0.1) 02/25/20 13:05 Seg Neutrophils % 60.9 % (40.0-70.0) 02/25/20 13:05 Seg Neutrophils # 4.1 K/mm3 (1.8-7.7) 02/25/20 13:05 PT 14.5 Sec. (12.2-14.9) 02/25/20 13:05 INR 1.12 (0.87-1.13) 02/25/20 13:05 APTT 28.0 Sec. (24.2-36.6) 02/25/20 13:05 D-Dimer 1075.80 ng/mlDDU (0-234) H 02/25/20 13:05 Sodium 141 mmol/L (137-145) 02/25/20 13:05 Potassium 4.4 mmol/L (3.6-5.0) 02/25/20 13:05 Chloride 105.5 mmol/L (98-107) 02/25/20 13:05 Carbon Dioxide 23 mmol/L (22-30) 02/25/20 13:05 Anion Gap 17 mmol/L 02/25/20 13:05 BUN 12 mg/dL (7-17) 02/25/20 13:05 Creatinine 0.7 mg/dL (0.6-1.2) 02/25/20 13:05 Estimated GFR > 60 ml/min 02/25/20 13:05 BUN/Creatinine Ratio 17 % 02/25/20 13:05 Glucose 92 mg/dL (65-100) 02/25/20 13:05 Calcium 8.8 mg/dL (8.4-10.2) 02/25/20 13:05 Magnesium 1.80 mg/dL (1.7-2.3) 02/25/20 13:05 Total Creatine Kinase 56 units/L (30-135) 02/25/20 13:05 HCG, Quant < 2 mIU/mL (0-4) 02/25/20 15:42 - Imaging and Cardiology Imaging and Cardiology: CTA of the chest Suspect small nonocclusive pulmonary thrombus identified within the right lower lobe as above Nonspecific airspace density within the peripheral aspect of the right lower lobe may represent pneumonitis. Duplex scan bilateral. No sonographic evidence for DVT in either lower extremity. Thrombus is seen within the superficial right calf vein. Assessment and Plan Advance Directives: Yes (Full code) VTE prophylaxis?: Chemical Plan of care discussed with patient/family: Yes - Patient Problems (1) Acute pulmonary embolism Current Visit: Yes Status: Acute Qualifiers: Acute cor pulmonale presence: without acute cor pulmonale Plan to address problem: Given her recurrent pulmonary emboli will admit for observation Started on Lovenox weight-based 200 mg subcu every 12 Patient may be discharged tomorrow if she is stable on Eliquis. Patient's CTA findings may be chronic . Right lower extremity DVT is not present. 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0-59.9, adult Current Visit: Yes Status: Chronic Plan to address problem: Patient needs bariatric surgery as outpatient Patient to be given referral with Dr. Kenney (6) DVT prophylaxis Current Visit: Yes Status: Acute Plan to address problem: On Lovenox and to be discharged on oral Eliquis Continue GI prophylaxis
[2020-02-25] MEDS ORDERED: ENOXAPARIN 40 MG/0.4 ML INJ SUB-Q SCH (22:00)
[2020-02-25] MEDS ORDERED: FERROUS SULFATE 325 MG TAB PO SCH (22:00)
[2020-02-25] MEDS ORDERED: NIFEdipine XL 30 MG TAB PO SCH (22:00)
[2020-02-25] MEDS ORDERED: FERROUS SULFATE 325 MG PO SCH (22:00)
[2020-02-25] MEDS ORDERED: HYDROmorphone 1 MG/1 ML INJ IV PRN (22:01)
[2020-02-25] MEDS ORDERED: ONDANSETRON 4 MG/2 ML INJ IV PRN (22:01)
[2020-02-25] MEDS ORDERED: ACETAMINOPHEN 325 MG TAB PO PRN (22:01)
[2020-02-25] MEDS ORDERED: SODIUM CHLORIDE 0.9% 1000 ML 1,000 ML IV SCH (22:15)
[2020-02-25] MEDS: oxyCODONE /ACETAMINOPHEN 5-325MG TAB PO PRN (22:33)
[2020-02-26] MEDS ORDERED: ENOXAPARIN 100 MG/1 ML INJ SUB-Q SCH (06:00)
[2020-02-26 06:25] LABS: Basophils % (Auto) 0.4 % (0.0-1.8); Eosinophils # (Auto) 0.2 K/mm3 (0.0-0.4); Eosinophils % (Auto) 3.5 % (0.0-4.3); Hematocrit 23.5 % (30.3-42.9); Lymphocytes # (Auto) 2.7 K/mm3 (1.2-5.4); Lymphocytes % (Auto) 47.9 % (13.4-35.0); Mean Corpuscular HGB Conc 30 % (30-34); Monocytes # (Auto) 0.5 K/mm3 (0.0-0.8); Monocytes % (Auto) 9.3 % (0.0-7.3); Platelet Count 276 K/mm3 (140-440); Red Blood Count 3.63 M/mm3 (3.65-5.03); Red Cell Distribution Width 19.7 % (13.2-15.2)
[2020-02-26 06:29] LABS: Mean Corpuscular Volume 65 fl (79-97)
[2020-02-26 06:43] LABS: Alanine Aminotransferase 7 units/L (7-56); Albumin 3.1 g/dL (3.9-5); Blood Urea Nitrogen 13 mg/dL (7-17); Calcium 8.2 mg/dL (8.4-10.2); Hemolysis Index 2
[2020-02-26 06:45] LABS: BUN/Creatinine Ratio 22
[2020-02-26] MEDS ORDERED: BUDESONIDE 0.5 MG/2 ML NEBU IH SCH (08:00)
[2020-02-26] MEDS ORDERED: ARFORMOTEROL 15 MCG/2 ML NEBU IH SCH (08:00)
[2020-02-26] MEDS: oxyCODONE /ACETAMINOPHEN 5-325MG TAB PO PRN (08:23)
--- NOTE | 2020-02-26 12:37 | Discharge Summary ---
Providers - Providers Date of Admission: 02/25/20 18:12 Date of discharge: 02/26/20 Attending physician: RAMO FITZGERALD Primary care physician: BENEFITS ADMINISTRATOR Hospitalization Condition: Good Pertinent studies: Lower extremity ultrasound negative for DVT. CT scan chest showed small nonacute nonocclusive thrombus right lung.. Chronic from previous pulmonary embolism. Hospital course: Patient 39-year-old female with history of morbid obesity recurrent DVT obesity hypoventilation syndrome not on CPAP. Presents on lifelong Eliquis. Patient has not been taking Eliquis. States she takes it 1 day only once daily. And then she does not take it for multiple days at a time. Patient came in with 2 days of shortness of breath x2 days symptoms are stable patient able to breathe without any significant abnormalities. Patient had CT scan showed old nonacute small thrombus. Can be treated with Eliquis. Patient has not had adequate treatment. Disposition: TO HOME OR SELFCARE - Discharge Diagnoses (1) Acute pulmonary embolism Status: Acute Qualifiers: Acute cor pulmonale presence: without acute cor pulmonale Comment: Acute pulmonary embolism was ruled out. Patient has past history of recurrent DVT embolism. Noncompliance. Explained the correct way to take Eliquis twice daily. (2) Noncompliance Status: Acute Comment: Long discussion about medicinal noncompliance. Follow- up with Dr. Alfonso follow-up primary care physician. (3) Superficial vein thrombosis Status: Acute Comment: Resolved spontaneously observe. (4) Hypertension Status: Chronic Qualifiers: Hypertension type: essential hypertension Qualified Code(s): I10 - Essential (primary) hypertension Comment: Fair control of blood pressure. Continue medical management. (5) Morbid obesity with BMI of 50.0-59.9, adult Status: Chronic Comment: Increase exercise and decrease caloric intake. Weight watchers also added benefit. (6) Sleep apnea Status: Chronic Qualifiers: Sleep apnea type: idiopathic sleep related nonobstructive alveolar hypoventilation Qualified Code(s): G47.34 - Idiopathic sleep related nonobstructive alveolar hypoventilation Comment: Patient should follow-up outpatient for sleep apnea evaluate for CPAP trial. Patient appears to have obesity hypoventilation syndrome. Core Measure Documentation - Palliative Care Palliative Care/ Comfort Measures: Not Applicable - Core Measures Any of the following diagnoses?: none Exam - Constitutional Vitals: Temp Pulse Resp BP Pulse Ox 98.3 F 86 19 109/49 97 02/26/20 05:30 02/26/20 07:51 02/26/20 07:51 02/26/20 05:30 02/26/20 05:30 General appearance: Present: no acute distress, well-nourished - EENT Eyes: Present: PERRL ENT: hearing intact, clear oral mucosa - Neck Neck: Present: supple, normal ROM, other (Obese) - Respiratory Respiratory effort: normal Respiratory: right: diminished (Obese) - Cardiovascular Heart Sounds: Present: S1 & S2. Absent: rub, click - Extremities Extremities: pulses symmetrical, No edema Peripheral Pulses: within normal limits - Abdominal General gastrointestinal: Present: soft, non-tender, non-distended, normal bowel sounds Female genitourinary: Present: normal - Integumentary Integumentary: Present: clear, warm, dry - Musculoskeletal Musculoskeletal: gait normal, strength equal bilaterally - Psychiatric Psychiatric: appropriate mood/affect, intact judgment & insight - Neurologic Neurologic: CNII-XII intact, moves all extremities Plan Activity: advance as tolerated Weight Bearing Status: Full Weight Bearing Diet: low fat, low salt Follow up with: PRIMARY CARE, [Primary Care Provider] - 3-5 Days Prescriptions: amLODIPine 10 mg PO DAILY #30 tablet Apixaban [Eliquis] 5 mg PO BID #49 tablet NIFEdipine [Nifedipine ER] 30 mg PO DAILY #30
[2020-02-26 14:17] VITALS: BP 126/73
== END 2020-02-26 16:55 | disposition home or self-care (01) ==
LOC: ED 11:44 → 3A 18:12
PROVIDERS: ADMIT Internal Medicine; ATTEND Internal Medicine
DX: I26.99 Other pulmonary embolism without acute cor pulmonale (principal); G47.30 Sleep apnea, unspecified; I10 Essential (primary) hypertension; D50.9 Iron deficiency anemia, unspecified; I82.811 Embolism and thrombosis of superficial veins of right lower extremity; E66.9 Obesity, unspecified; Z68.43 Body mass index [BMI] 50.0-59.9, adult; Z91.19 Patient's noncompliance with other medical treatment and regimen; Z98.890 Other specified postprocedural states; Z79.899 Other long term (current) drug therapy
CPT/HCPCS: 36415; 71275; 80048; 80053; 82550; 83036; 83735; 84702; 85025; 85379; 85610; 85730; 93005; 93970; 94640; 96360; 96361; 96372; 99285; G0378; J1650; J7030; J7040; Q9967

== ENCOUNTER 2020-05-18 13:54 | Emergency (ER) | payer BC ==
[2020-05-18 14:32] VITALS: BP 188/106
--- NOTE | 2020-05-18 14:48 | Event Note ---
ED Screening Note Date of service: 05/18/20 Time: 14:46 ED Screening Note: 40-year-old -[place] female presents to the emergency room for sore throat greater than 2 weeks. Patient states she has been on antibiotics and steroids with no relief. This initial assessment/diagnostic orders/clinical plan/treatment(s) is/are subject to change based on patients health status, clinical progression and re- assessment by fellow clinical providers in the ED. Further treatment and workup at subsequent clinical providers discretion. Patient/guardian urged not to elope from the ED as their condition may be serious if not clinically assessed and managed. Initial orders include:
--- NOTE | 2020-05-18 15:26 | XRay Report ---
NECK SOFT TISSUE 2 VIEW(S) INDICATION / CLINICAL INFORMATION: Sore throat, dysphagia. COMPARISON: None available. FINDINGS: EPIGLOTTIS: No significant abnormality. RETROPHARYNGEAL SOFT TISSUES: No significant abnormality. AIRWAY: No significant abnormality. RADIOPAQUE FOREIGN BODY: None. SKELETAL SYSTEM: No significant abnormality. ADDITIONAL FINDINGS: None. IMPRESSION: 1. No significant abnormality. Signer Name: Jose Howell MD Signed: 05/18/2020 3:21 PM Workstation Name: [id number]
--- NOTE | 2020-05-18 16:01 | Emergency Department Report ---
ED ENT HPI - General Chief complaint: Sore Throat Stated complaint: SORE THROAT Source: patient Mode of arrival: Ambulatory Limitations: No Limitations - History of Present Illness Initial comments: 40-year-old -[place] female presents to the emergency room for sore throat greater than 2 weeks. Patient states she has been on antibiotics and steroids with no relief. Onset/Timin -: week(s) Location: throat Severity scale (0 -10): 10 Consistency: constant Improves with: none Worsens with: swallowing Associated Symptoms: pain with swallowing, sore throat - Related Data Home Medications Medication Instructions Recorded Confirmed Last Taken Ferrous Sulfate(Nf) [Slow Release 325 mg PO BID 03/12/14 02/26/20 03/13/14 09:00 Iron(Nf)] Metronidazole 500 mg PO DAILY 02/25/20 02/26/20 Unknown NIFEdipine [Nifedipine ER] 30 mg PO DAILY 02/25/20 02/26/20 Unknown Previous Rx's Medication Instructions Recorded Last Taken Type Budesoni/Formotero 160-4.5(Nf) 2 puff INHALATION ONCE PRN #1 inha 10/14/17 Unknown Rx [Symbicort 160-4.5 (Nf)] Acetaminophen [Acetaminophen TAB] 650 mg PO Q4H PRN tablet 02/26/20 Unknown Rx Apixaban [Eliquis] 5 mg PO BID #49 tablet 02/26/20 Unknown Rx Arformoterol Nebu [Brovana Nebu] 15 mcg IH Q12HRT ml 02/26/20 Unknown Rx Budesonide [Pulmicort Respules] 1 mg IH Q12HRT nebu 02/26/20 Unknown Rx NIFEdipine XL [Procardia Xl] 30 mg PO DAILY tablet 02/26/20 Unknown Rx NIFEdipine [Nifedipine ER] 30 mg PO DAILY #30 02/26/20 Unknown Rx amLODIPine 10 mg PO DAILY #30 tablet 02/26/20 Unknown Rx Allergies Allergy/AdvReac Type Severity Reaction Status Date / Time No Known Allergies Allergy Verified 09/05/16 07:27 ED Dental HPI - General Chief complaint: Sore Throat Stated complaint: SORE THROAT Source: patient Mode of arrival: Ambulatory Limitations: No Limitations - Related Data Home Medications Medication Instructions Recorded Confirmed Last Taken Ferrous Sulfate(Nf) [Slow Release 325 mg PO BID 03/12/14 02/26/20 03/13/14 09:00 Iron(Nf)] Metronidazole 500 mg PO DAILY 02/25/20 02/26/20 Unknown NIFEdipine [Nifedipine ER] 30 mg PO DAILY 02/25/20 02/26/20 Unknown Previous Rx's Medication Instructions Recorded Last Taken Type Budesoni/Formotero 160-4.5(Nf) 2 puff INHALATION ONCE PRN #1 inha 10/14/17 Unknown Rx [Symbicort 160-4.5 (Nf)] Acetaminophen [Acetaminophen TAB] 650 mg PO Q4H PRN tablet 02/26/20 Unknown Rx Apixaban [Eliquis] 5 mg PO BID #49 tablet 02/26/20 Unknown Rx Arformoterol Nebu [Brovana Nebu] 15 mcg IH Q12HRT ml 02/26/20 Unknown Rx Budesonide [Pulmicort Respules] 1 mg IH Q12HRT nebu 02/26/20 Unknown Rx NIFEdipine XL [Procardia Xl] 30 mg PO DAILY tablet 02/26/20 Unknown Rx NIFEdipine [Nifedipine ER] 30 mg PO DAILY #30 02/26/20 Unknown Rx amLODIPine 10 mg PO DAILY #30 tablet 02/26/20 Unknown Rx Allergies Allergy/AdvReac Type Severity Reaction Status Date / Time No Known Allergies Allergy Verified 09/05/16 07:27 ED Review of Systems ROS: Stated complaint: SORE THROAT Other details as noted in HPI Comment: All other systems reviewed and negative ED Past Medical Hx - Past Medical History Previous Medical History?: Yes Hx Hypertension: Yes Hx Congestive Heart Failure: No Hx Deep Vein Thrombosis: Yes Hx Pulmonary Embolism: Yes Hx Psychiatric Treatment: Yes (suicide attempt / depression) Hx Asthma: No Hx COPD: No Additional medical history: sleep apnea,PE. anemia. morbid obesity - Surgical History Hx Breast Surgery: Yes (breast reduction) Additional Surgical History: Uterian fibroid surgery. lap band surgery. myomectomy - Social History Smoking Status: Never Smoker Substance Use Type: None - Medications Home Medications: Home Medications Medication Instructions Recorded Confirmed Last Taken Type Ferrous Sulfate(Nf) [Slow Release 325 mg PO BID 03/12/14 02/26/20 03/13/14 09:00 History Iron(Nf)] Budesoni/Formotero 160-4.5(Nf) 2 puff INHALATION ONCE PRN #1 inha 18 02/26/20 Unknown Rx [Symbicort 160-4.5 (Nf)] Metronidazole 500 mg PO DAILY 02/25/20 02/26/20 Unknown History NIFEdipine [Nifedipine ER] 30 mg PO DAILY 02/25/20 02/26/20 Unknown History Acetaminophen [Acetaminophen TAB] 650 mg PO Q4H PRN tablet 02/26/20 Unknown Rx Apixaban [Eliquis] 5 mg PO BID #49 tablet 02/26/20 Unknown Rx Arformoterol Nebu [Brovana Nebu] 15 mcg IH Q12HRT ml 02/26/20 Unknown Rx Budesonide [Pulmicort Respules] 1 mg IH Q12HRT nebu 02/26/20 Unknown Rx NIFEdipine XL [Procardia Xl] 30 mg PO DAILY tablet 02/26/20 Unknown Rx NIFEdipine [Nifedipine ER] 30 mg PO DAILY #30 02/26/20 Unknown Rx amLODIPine 10 mg PO DAILY #30 tablet 02/26/20 Unknown Rx ED Physical Exam - General Limitations: No Limitations General appearance: alert, in no apparent distress - Head Head exam: Present: atraumatic, normocephalic - Eye Eye exam: Present: normal appearance - ENT ENT exam: Present: mucous membranes moist - Neck Neck exam: Present: normal inspection - Respiratory Respiratory exam: Present: normal lung sounds bilaterally. Absent: respiratory distress - Cardiovascular Cardiovascular Exam: Present: regular rate, normal rhythm. Absent: systolic murmur, diastolic murmur, rubs, gallop - GI/Abdominal GI/Abdominal exam: Present: soft, normal bowel sounds - Extremities Exam Extremities exam: Present: normal inspection - Back Exam Back exam: Present: normal inspection - Neurological Exam Neurological exam: Present: alert, oriented X3 - Psychiatric Psychiatric exam: Present: normal affect, normal mood - Skin Skin exam: Present: warm, dry, intact, normal color. Absent: rash ED Course Vital Signs 05/18/20 14:29 Temperature 97.9 F Pulse Rate 80 Respiratory 20 Rate Blood Pressure 188/106 O2 Sat by Pulse 97 Oximetry ED Medical Decision Making - Radiology Data Radiology results: report reviewed Referring Physician:CARLOS LONGPatient Name:NITHIN ALLENPatient ID:[id number] of :[id number]:FemaleAccession:[id number] Date:[id number] Status:Finalized Findings [facility] [address] [address] XRay Report Signed Patient: NITHIN ALLEN MR#: [id number] : 1980 Acct:[id number] Age/Sex: 40 / F ADM Date: 05/18/20 Loc: ED Attending Dr: Ordering Physician: SARAI MURRAY Date of Service: 05/18/20 Procedure(s): XR neck soft tissue Accession Number(s): [id number] cc: SARAI MURRAY Fluoro Time In Minutes: NECK SOFT TISSUE 2 VIEW(S) INDICATION / CLINICAL INFORMATION: Sore throat, dysphagia. COMPARISON: None available. FINDINGS: EPIGLOTTIS: No significant abnormality. RETROPHARYNGEAL SOFT TISSUES: No significant abnormality. AIRWAY: No significant abnormality. RADIOPAQUE FOREIGN BODY: None. SKELETAL SYSTEM: No significant abnormality. ADDITIONAL FINDINGS: None. IMPRESSION: 1. No significant abnormality. Signer Name: Jose Howell MD Signed: 05/18/2020 3:21 PM Workstation Name: [id number] Transcribed By: CASTILLO Dictated By: Jose Howell MD Electronically Authenticated By: Jose Howell MD Signed Date/Time: 05/18/20 1521 DD/ 1520 TD/TT: - Medical Decision Making 40-year-old -[place] female presents to the emergency room for sore throat greater than 2 weeks. Patient states she has been on antibiotics and steroids with no relief. Critical care attestation.: If time is entered above; I have spent that time in minutes in the direct care of this critically ill patient, excluding procedure time. ED Disposition Clinical Impression: Sore throat (viral) Disposition: DC-01 TO HOME OR SELFCARE Is pt being admited?: No Does the pt Need Aspirin: No Condition: Stable Instructions: Pharyngitis, [id number] Additional Instructions: x-ray neg for any abnormalities. follow up with your Primary Care provider. Referrals: SIA SALGADO MD [Staff Physician] - 3-5 Days
== END 2020-05-18 16:45 | disposition home or self-care (01) ==
LOC: ED 13:54
DX: J02.8 Acute pharyngitis due to other specified organisms (principal); I10 Essential (primary) hypertension; F32.9 Major depressive disorder, single episode, unspecified; D64.9 Anemia, unspecified; E66.01 Morbid (severe) obesity due to excess calories; Z68.43 Body mass index [BMI] 50.0-59.9, adult; Z79.899 Other long term (current) drug therapy; Z98.890 Other specified postprocedural states
CPT/HCPCS: 70360